=== PATIENT | male | born 1995 | race African-American/Black ===

== ENCOUNTER 2017-11-04 14:15 | Emergency (ER) | payer OTHER ==
[~2017-11-04] VITALS: Ht 172.7 cm; Wt 61.2 kg
--- NOTE | ~2017-11-04 | EKG ---
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
[~2017-11-04 14:15] MED LIST: 12 HOUR COLD R120 M1 PO; ANAPROX DS550 MG PO; NOHOMEMEDICATIONS; TESSALON200 MG PO; ZPAK PO
[2017-11-04 14:59] LABS: HEMATOCRIT 40.7 % (42.0-52.0); HEMOGLOBIN 14.3 gm/dL (14.0-18.0); MCH 30.3 pg (26.0-34.0); MCHC 35.1 g/dL (28.0-37.0); MCV 86.4 fL (80.0-100.0); PLATELET COUNT 204 thou/uL (150-400); RBC 4.72 mil/uL (4.50-6.00); RDW 12.4 % (10.5-14.5); WBC 15.7 thou/uL (4.0-11.0)
[2017-11-04 15:27] LABS: ALBUMIN 4.6 g/dL (3.4-5.0); ANION GAP 11 mmol/L (7-16); BUN 13 mg/dL (7-18); CALCIUM 9.8 mg/dL (8.5-10.1); CHLORIDE 105 mmol/L (98-107); CO2 26 mmol/L (21-32); CREATININE 0.9 mg/dL (0.7-1.3); GLUCOSE 109 mg/dL (74-106); LIPASE 64 U/L (73-393); POTASSIUM 4.3 mmol/L (3.5-5.1); SGOT 23 U/L (15-37); SGPT 37 U/L (30-65); SODIUM 142 mmol/L (136-145); TOTAL BILIRUBIN 0.6 mg/dL (<0.1-1.0); TOTAL PROTEIN 7.3 g/dL (6.4-8.2); TROPONIN-I < 0.04 ng/mL (<0.06)
[2017-11-04 15:42] LABS: ABSOLUTE NEUTROPHILS 13.7 thou/uL (1.4-8.2); PLATELET ESTIMATE NORMAL
[2017-11-04] MEDS ORDERED: PEPCID20 MG PO (15:54)
[2017-11-04] MEDS ORDERED: ANUSOL-HC25 MG RECTAL (15:54)
[2017-11-04] MEDS ORDERED: ZOFRAN ODT4 MG PO (15:54)
[2017-11-04] MEDS ORDERED: MIRALAX17 GM PO (15:54)
== END 2017-11-04 17:01 | disposition home or self-care (01) ==
LOC: ER 14:15
PROVIDERS: Physician Assistant
DX: K59.00 Constipation, unspecified (principal); R00.2 Palpitations; R01.1 Cardiac murmur, unspecified; Z88.0 Allergy status to penicillin

== ENCOUNTER 2017-12-11 09:43 | Emergency (ER) | payer OTHER ==
[~2017-12-11] VITALS: Ht 170.2 cm; Wt 59.0 kg
--- NOTE | ~2017-12-11 | EKG ---
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 TRIANA : 1995 Requested By: Honorio Macias Order Number: [id number] MD: Jose Huston Measurements Intervals [place] Rate: 80 P: 72 MT: 158 QRS: 82 QRSD: 80 T: 52 QT: 409 QTc: 472 Interpretive Statements Sinus arrhythmia Borderline prolonged QT interval Compared to ECG 11/04/2017 15:27:52 No significant change was found Electronically Signed On 12-12-2017 7:36:49 LUMBER PRESS OPERATOR by Jose Huston [email or web address] <ELECTRONICALLY SIGNED> By: Jose Huston MD, [facility] 12/12/17 0736 1053 1053 Jose Huston MD, FACC /EPI
[~2017-12-11 09:43] MED LIST changes: +ANUSOL-HC25 MG RECTAL; +MIRALAX17 GM PO; +PEPCID20 MG PO; +ZOFRAN ODT4 MG PO
[2017-12-11 10:13] LABS: URINE BILIRUBIN NEGATIVE (Negative); URINE BLOOD NEGATIVE (Negative); URINE CLARITY CLOUDY; URINE COLOR YELLOW; URINE GLUCOSE-RANDOM* NEGATIVE (Negative); URINE KETONES NEGATIVE (Negative); URINE LEUKOCYTES NEGATIVE (Negative); URINE NITRITE NEGATIVE (Negative); URINE PROTEIN (DIPSTICK) NEGATIVE (Negative); URINE UROBILINOGEN 0.2 E.U./dl (0.2-1.0)
[2017-12-11 10:22] LABS: ABSOLUTE NEUTROPHILS 9.6 thou/uL (1.4-8.2); BASOPHILS 0.8 % (0.0-2.0); EOSINOPHILS 0.7 % (0.0-3.0); HEMATOCRIT 42.5 % (42.0-52.0); HEMOGLOBIN 15.1 gm/dL (14.0-18.0); LYMPHOCYTES 16.2 % (24.0-44.0); MCH 30.3 pg (26.0-34.0); MCHC 35.4 g/dL (28.0-37.0); MCV 85.6 fL (80.0-100.0); MONOCYTES 4.9 % (1.0-8.0); PLATELET COUNT 278 thou/uL (150-400); POLYS 77.4 % (36.0-66.0); RBC 4.97 mil/uL (4.50-6.00); RDW 12.3 % (10.5-14.5); WBC 12.4 thou/uL (4.0-11.0)
[2017-12-11 10:28] LABS: AMP/METHAMP Negative (Negative); BARBITURATES Negative (Negative); BENZODIAZEPINES Negative (Negative); COCAINE Negative (Negative); METHADONE Negative (Negative); OPIATES Negative (Negative); PCP Negative (Negative)
[2017-12-11 10:30] LABS: CALCIUM 9.7 mg/dL (8.5-10.1); POTASSIUM 3.6 mmol/L (3.5-5.1)
[2017-12-11 10:37] LABS: ALBUMIN 4.5 g/dL (3.4-5.0); DIRECT BILIRUBIN 0.2 mg/dL (<0.1-0.3); TOTAL BILIRUBIN 0.6 mg/dL (<0.1-1.0); TOTAL PROTEIN 7.7 g/dL (6.4-8.2)
[2017-12-11] MEDS ORDERED: OMEPRAZOLE40 MG PO (11:25)
[2017-12-11] MEDS ORDERED: CARAFATE 1 GM TA1 G1 PO (11:25)
[2017-12-11] MEDS ORDERED: PHENERGAN 25 MG25 M1 PO (11:32)
[2017-12-12] MEDS ORDERED: PROMS25 WY RECTAL (10:55)
[2017-12-12] MEDS ORDERED: PHENERGAN 25 MG25 M1 PO (10:55)
== END 2017-12-11 12:35 | disposition home or self-care (01) ==
LOC: ER 09:43
PROVIDERS: Nurse Practitioner
DX: K52.9 Noninfective gastroenteritis and colitis, unspecified (principal); Z88.0 Allergy status to penicillin

== ENCOUNTER 2017-12-12 10:43 | Emergency (ER) | payer OTHER ==
[~2017-12-12] VITALS: Ht 170.2 cm; Wt 59.0 kg
[~2017-12-12 10:43] MED LIST changes: +CARAFATE 1 GM TA1 G1 PO; +OMEPRAZOLE40 MG PO; +PHENERGAN 25 MG25 M1 PO
[2017-12-12] MEDS ORDERED: PHENERGAN 25 MG25 M1 PO (10:55)
[2017-12-12] MEDS ORDERED: PROMS25 WY RECTAL (10:55)
[2017-12-12 11:10] LABS: ABSOLUTE NEUTROPHILS 9.3 thou/uL (1.4-8.2); BASOPHILS 0.8 % (0.0-2.0); EOSINOPHILS 0.4 % (0.0-3.0); HEMATOCRIT 40.7 % (42.0-52.0); HEMOGLOBIN 14.7 gm/dL (14.0-18.0); LYMPHOCYTES 15.4 % (24.0-44.0); MCH 30.1 pg (26.0-34.0); MCHC 36.1 g/dL (28.0-37.0); MCV 83.4 fL (80.0-100.0); MONOCYTES 7.1 % (1.0-8.0); PLATELET COUNT 289 thou/uL (150-400); POLYS 76.3 % (36.0-66.0); RBC 4.88 mil/uL (4.50-6.00); RDW 12.2 % (10.5-14.5); WBC 12.2 thou/uL (4.0-11.0)
[2017-12-12 11:23] LABS: CREATININE 1.1 mg/dL (0.7-1.3); POTASSIUM 3.2 mmol/L (3.5-5.1)
[2017-12-12 11:29] LABS: ALBUMIN 4.6 g/dL (3.4-5.0); DIRECT BILIRUBIN 0.2 mg/dL (<0.1-0.3); TOTAL BILIRUBIN 0.6 mg/dL (<0.1-1.0); TOTAL PROTEIN 7.6 g/dL (6.4-8.2)
== END 2017-12-12 12:06 | disposition home or self-care (01) ==
LOC: ER 10:43
PROVIDERS: Emergency Medicine
DX: K31.89 Other diseases of stomach and duodenum (principal); R11.2 Nausea with vomiting, unspecified; Z87.891 Personal history of nicotine dependence; Z88.0 Allergy status to penicillin

== ENCOUNTER 2019-06-25 22:37 | Inpatient (IN) | payer OTHER ==
[~2019-06-25] VITALS: Ht 167.6 cm; Wt 58.1 kg
[~2019-06-25 22:37] MED LIST changes: +PROMS25 WY RECTAL
[2019-06-25 22:38] VITALS: BP 119/74
[2019-06-25 23:40] LABS: ABSOLUTE NEUTROPHILS 15.2 thou/uL (1.4-8.2); BASOPHILS 1.1 % (0.0-2.0); EOSINOPHILS 0.1 % (0.0-3.0); HEMATOCRIT 42.1 % (42.0-52.0); LYMPHOCYTES 7.5 % (24.0-44.0); MCH 30.8 pg (26.0-34.0); MCHC 35.6 g/dL (28.0-37.0); MCV 86.4 fL (80.0-100.0); MONOCYTES 5.1 % (1.0-8.0); PLATELET COUNT 242 thou/uL (150-400); POLYS 86.2 % (36.0-66.0); RBC 4.87 mil/uL (4.50-6.00); RDW 12.7 % (10.5-14.5); WBC 17.7 thou/uL (4.0-11.0)
[2019-06-25 23:42] LABS: CALCIUM 9.9 mg/dL (8.5-10.1); CREATININE 1.2 mg/dL (0.7-1.3); POTASSIUM 3.7 mmol/L (3.5-5.1)
[2019-06-25 23:48] LABS: ALBUMIN 4.9 g/dL (3.4-5.0); TOTAL BILIRUBIN 0.7 mg/dL (<0.1-1.0)
[2019-06-26 00:24] LABS: URINE BILIRUBIN NEGATIVE (Negative); URINE BLOOD NEGATIVE (Negative); URINE CLARITY SL CLOUDY; URINE COLOR YELLOW; URINE GLUCOSE-RANDOM* NEGATIVE (Negative); URINE KETONES 2+ (Negative); URINE LEUKOCYTES-REFLEX NEGATIVE (Negative); URINE NITRITE-REFLEX NEGATIVE (Negative); URINE PROTEIN (DIPSTICK) 2+ (Negative); URINE SPECIFIC GRAVITY 1.025 (1.005-1.035); URINE UROBILINOGEN 0.2 E.U./dl (0.2-1.0)
[2019-06-26 00:35] LABS: BACTERIA-REFLEX 1-9 Few /HPF (None Seen); CASTS None Seen /LPF (None Seen); CRYSTALS None Seen /LPF (None Seen); MUCUS >6 Heavy strn/LPF (None Seen); SQUAMOUS 0-3 Few /LPF (0-3); URINE RBC 0-2 Rare /HPF (0-2); URINE WBC-REFLEX 0-5 Rare /HPF (0-5)
--- NOTE | 2019-06-26 01:33 | NUR ---
LACTIC ACID RESULT 4.3. DR. HAWKINS INFORMED
[2019-06-26 03:07] VITALS: BP 90/39
[2019-06-26 03:20] VITALS: BP 105/66
--- NOTE | 2019-06-26 05:00 | NUR ---
PT ARRIVED ON THE UNIT @0315 FROM THE ED WITH C/O N/V AND PAIN BELOW BELLY BUTTON AREA. ASSESSMENT DONE PT A&OX4, UP AD SOLOMON TO THE BATHROOM. NO NAUSEA NOTED DURING ASSESSMENT. CLEAR LUNG SOUNDS AND IV INTACT IN RT AC WITH NS INFUSING AT 125ML/HR. CONSENT SIGNED AND ADMISSION DOCUMENT. PT STATED WILL NEED TRANSPORTATION HOME AFTER D/C AND SO HAS A 3WEEKS OLD BABY AT HOME. PT STATED HAS BE EATING POORLY WITHIN THE LAST 3MONTHS AND HAS LOST 15LBS. PT ORIENTED TO ROOM AND CALL LIGHT WITHIN REACH WILL CONTINUE POC TILL EOS.
[2019-06-26 06:22] LABS: AMP/METHAMP Negative (Negative); BARBITURATES Negative (Negative); BENZODIAZEPINES Negative (Negative); COCAINE Negative (Negative); METHADONE Negative (Negative); OPIATES Negative (Negative); PCP Negative (Negative)
[2019-06-26 07:42] VITALS: BP 107/57
[2019-06-26 13:16] VITALS: BP 107/57
--- NOTE | 2019-06-26 15:02 | NUR ---
ASSUMED CARE OF PATIENT AT 0715, PATIENT ALERT AND ORIENTED X 4. PATIENT UP AD SOLOMON. PATIENT DENIES PAIN AND N/V, NO DIARRHEA AT THIS TIME. PATIENT ON CLEAR LIQUIDS, TOLERATED W/O DIFFICULTY. PATIENT HAS RIGHT AC IV IN PLACE WITH NS AT 125CC/HR. PATIENT WANTS TO BE DISCHARGED TO HOME FEELS BETTER. RIGHT AC IV REMOVED PRIOR TO DISCHARGE. ALL DISCHARGE PAPERWORK AND ALL PERSONAL BELONGINGS SENT WITH THE PATIENT. CAB VOUCHER GIVEN FOR TRANSPORT TO HOME. VOLUNTEER TOOK PATIENT TO SEC[facility], THEY WILL CALL FOR CAB.
--- NOTE | 2019-06-26 15:07 | NUR ---
PT ADMITTED RELATED TO N/V, DIARRHEA. CM REVIEWED CHART AND SPOKE WITH CARE TEAM. CM MET WITH PT AT BEDSIDE THIS DAY. PT IS A&O X4. CM ROLE INTRODCUED. PT INDICATED HE LIVES IN A HOUSE WITH HIS SPOUSE AND 2 CHILDREN. HE INIDCATED THAT THERE ARE 7 STEPS TO ENTER AND NO STEPS INSIDE. 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 PT INDICATED NO DME OR HH HX. PT INDICATED HE IS IN FACT PATIENT PAY AND IS WITHOUT AT PCP IN [place]. PT WAS PROVIDED A [facility]. PT INDICATED HE NEEDED A RIDE HOME. CARE TEAM INDICATED THAT PT IS MEDICALLY STABLE TO DC HOME THIS DAY. CM COMPLETED YELLOW CAB VOUCHER AND IT WAS PROVIDED TO NURSE FOR HER TO SEND PT DOWN TO [facility] WITH TO ARRANGE. NO OTHER CM INTERVENTION INDICATED. CASE CLOSED.
== END 2019-06-26 13:30 | disposition home or self-care (01) | DRG 392 ==
LOC: ER 22:37 → 4E 06-26 02:39 → EROBS 06-26 02:39 → 4E 06-26 03:07 → ENTRNSPT 06-26 13:24 → 4E 06-26 13:30 → EDTRNSPTSTS 06-26 13:32
PROVIDERS: Emergency Medicine; Nurse Practitioner Acute Care; ADMIT Hospitalist
DX: K31.89 Other diseases of stomach and duodenum (principal); E87.2 Acidosis; R11.2 Nausea with vomiting, unspecified; D72.829 Elevated white blood cell count, unspecified; G89.29 Other chronic pain; K21.9 Gastro-esophageal reflux disease without esophagitis; F17.210 Nicotine dependence, cigarettes, uncomplicated; Z88.0 Allergy status to penicillin
CPT/HCPCS: 10084

== ENCOUNTER 2021-06-18 17:07 | Emergency (ER) | payer OTHER ==
[~2021-06-18] VITALS: Ht 172.7 cm; Wt 52.2 kg
--- NOTE | ~2021-06-18 | EMS ---
[facility] [address] [place] [address] EMS Patient Care Report Name: KARENA KOWALSKI Room #: DEP GABY Williamson#: [id number] Admission: 06/18/21 Attend Phys: Discharge: 06/18/21 Date of : [birth year] Report #: [id number] THIS REPORT FOR: //name// Report Transmitted: 06/23/2021 11:05 EMS Care Summary [place], [place]/[facility] Incident [id number] @ 06/18/2021 16:29 Incident Location [address] [place] [address] [address] [place] [address] Patient KARENA KOWALSKI Male, 25 Years 1995 Patient Address [address] [place] [address] Patient History None Reported, Patient Allergies No known allergies, Patient Medications None Reported, Chief Complaint body cramps Disposition Transported No Lights/Hart Dispatch Reason Sick Person Transported To [facility] Narrative patient is found walking around at the scene. patient states that for about the last five days he has had nausea and vomiting. patient also says that he just [facility] [address] [place] [address] EMS Patient Care Report Name: KARENA KOWALSKI Room #: DEP ER Janie.#: [id number] Admission: 06/18/21 Attend Phys: Discharge: 06/18/21 Date of : [birth year] Report #: [id number] does not feel well in general. patient says that today he is starting to have all over body cramping. patient states that he was at the hospital earlier today but says that the er did nothing for him and that is why he wants transport to a different hospital. patient states that he did test negative on his covid test. patient has no other complaints of illness or injury. Initial Vitals @16:40P: 113,R: 14,BP: 121/82,Pain: 2/10,GCS: 15,Glucose: 169,SpO2: 99,Revised Trauma: 12, Assessments @16:38MENTAL:No Abnormalities,SKIN:No Abnormalities,HEENT:Head/Face: No Abnormalities,Eyes: No Abnormalities,Neck/Airway: No Abnormalities,LUNG SOUNDS:General: No Abnormalities,Left Upper: No Abnormalities,Right Upper: No Abnormalities,Left Lower: No Abnormalities,Right Lower: No Abnormalities,ABDOMEN:General: No Abnormalities,Left Upper: No Abnormalities,Right Upper: No Abnormalities,Left Lower: No Abnormalities,Right Lower: No Abnormalities,PELVIS//GI:No Abnormalities,EXTREMITIES:Left Arm: No Abnormalities,Right Arm: No Abnormalities,Left Leg: No Abnormalities,Right Leg: No Abnormalities,PULSE:NEURO:No Abnormalities, Impression Generalized Weakness Procedures @17:00Saline Lock 0cc (20 ga) Site: Antecubital-LeftResponse: UnchangedSucceeded@16:38ALS AssessmentResponse: UnchangedSucceeded@16:39StretcherResponse: Unchanged Timeline 16:28,Call Received 16:28,Dispatch Notified 16:29,Dispatched 16:31,En Route 16:35,On Scene 16:38,At Patient 16:38,ALS Assessment,Response: UnchangedSucceeded, 16:39,Stretcher,Response: Unchanged 16:40,BP: 121/82 M,PULSE: 113,RR: 14 R,SPO2: 99 Ox,ETCO2: ,B,PAIN: 2,GCS: 15, 16:45,Depart Scene 17:00,Saline Lock 0cc 20 ga Site: Antecubital-Left,Response: UnchangedSucceeded, 17:03,At Destination 17:26,Call Closed Disclaimer [facility] [address] [place] [address] EMS Patient Care Report Name: KARENA KOWALSKI Room #: DEP Teri#: [id number] Admission: 06/18/21 Attend Phys: Discharge: 06/18/21 Date of : [birth year] Report #: [id number] v1.1 Copyright 2020 [employer] This EMS Care Summary contains data elements from the applicable legal record (which may be displayed differently). It is designed to provide pertinent information for the following purposes: continuity of care, clinical quality, and state data reporting. The complete legal record is available to ED staff and administrators of the receiving hospital in [employer]'s Patient Tracker. All data is provided "as is."
[2021-06-18 17:32] LABS: ABSOLUTE NEUTROPHILS 11.3 thou/uL (1.4-8.2); BASOPHILS 0.7 % (0.0-2.0); HEMATOCRIT 52.2 % (42.0-52.0); HEMOGLOBIN 18.5 gm/dL (14.0-18.0); LYMPHOCYTES 15.9 % (24.0-44.0); MCHC 35.4 g/dL (28.0-37.0); MCV 87.5 fL (80.0-100.0); MONOCYTES 16.6 % (1.0-8.0); PLATELET COUNT 333 thou/uL (150-400); POLYS 66.8 % (36.0-66.0); RBC 5.96 mil/uL (4.50-6.00); RDW 12.4 % (10.5-14.5); WBC 16.9 thou/uL (4.0-11.0)
[2021-06-18 17:48] LABS: ALBUMIN 6.1 g/dL (3.4-5.0); CREATININE 2.7 mg/dL (0.7-1.3); DIRECT BILIRUBIN 0.2 mg/dL (<0.1-0.2); MAGNESIUM 3.3 mg/dL (1.8-2.4); POTASSIUM 3.9 mmol/L (3.5-5.1); TOTAL BILIRUBIN 0.6 mg/dL (0.2-1.0); TOTAL PROTEIN 11.1 g/dL (6.4-8.2)
[2021-06-18 17:51] LABS: CALCIUM 13.6 mg/dL (8.5-10.1)
[2021-06-18 18:58] LABS: URINE BILIRUBIN 1+ (Negative); URINE BLOOD 3+ (Negative); URINE CLARITY CLEAR; URINE COLOR YELLOW; URINE GLUCOSE-RANDOM* NEGATIVE (Negative); URINE KETONES 1+ (Negative); URINE LEUKOCYTES-REFLEX NEGATIVE (Negative); URINE NITRITE-REFLEX NEGATIVE (Negative); URINE PROTEIN (DIPSTICK) 3+ (Negative); URINE SPECIFIC GRAVITY >= 1.030 (1.005-1.035)
[2021-06-18 19:05] LABS: AMP/METHAMP Negative (Negative); BARBITURATES Negative (Negative); BENZODIAZEPINES Negative (Negative); COCAINE Negative (Negative); ICTOTEST (BILI CONFIRMATORY) Negative (Negative); METHADONE Negative (Negative); OPIATES Negative (Negative); PCP Negative (Negative)
[2021-06-18 19:08] LABS: BACTERIA-REFLEX 1-9 Few /HPF (None Seen); CRYSTALS None Seen /LPF (None Seen); SQUAMOUS >10 Many /LPF (0-3); URINE RBC >20 Many /HPF (NONE SEEN); URINE WBC-REFLEX 0-5 Rare /HPF (0-5)
[2021-06-18 19:09] LABS: CASTS None Seen /LPF (None Seen); TRANSITIONAL EPITHEL CELL 4-10 Moderate /LPF (None Seen)
[2021-06-18] MEDS ORDERED: REGLAN 5 MG TAB5 MG PO ×2 (20:37)
[2021-06-18 21:00] VITALS: BP 156/90
--- NOTE | 2021-06-19 07:09 | EKG ---
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 : 1995 Requested By: Angeles Wright Order Number: [id number] MD: Laron Diaz Measurements Intervals [place] Rate: 79 P: 77 NM: 153 QRS: 79 QRSD: 69 T: 55 QT: 345 QTc: 396 Interpretive Statements Sinus rhythm ST elevation suggests pericarditis Compared to ECG 12/11/2017 10:53:52 ST (T wave) deviation now present Sinus arrhythmia no longer present Electronically Signed On 06-19-2021 7:09:20 CDT by Laron Diaz [email or web address] <ELECTRONICALLY SIGNED> By: Laron Diaz MD, [facility] 06/19/21 0709 1854 53 Laron Diaz MD, FACC /EPI
== END 2021-06-18 21:03 | disposition home or self-care (01) ==
LOC: ER 17:07
PROVIDERS: Emergency Medicine
DX: N17.9 Acute kidney failure, unspecified (principal); Z20.822 Contact with and (suspected) exposure to COVID-19; E86.0 Dehydration; R11.10 Vomiting, unspecified; K21.9 Gastro-esophageal reflux disease without esophagitis; Z88.0 Allergy status to penicillin; Z87.891 Personal history of nicotine dependence; Z96.642 Presence of left artificial hip joint

== ENCOUNTER 2021-06-20 02:10 | Emergency (ER) | payer OTHER ==
[~2021-06-20] VITALS: Ht 172.7 cm; Wt 52.2 kg
[~2021-06-20 02:10] MED LIST changes: +REGLAN 5 MG TAB5 MG PO
[2021-06-20 04:19] LABS: ABSOLUTE NEUTROPHILS 7.9 thou/uL (1.4-8.2); BASOPHILS 0.4 % (0.0-2.0); EOSINOPHILS 0.2 % (0.0-3.0); HEMATOCRIT 42.4 % (42.0-52.0); LYMPHOCYTES 16.7 % (24.0-44.0); MCHC 35.8 g/dL (28.0-37.0); MCV 86.5 fL (80.0-100.0); MONOCYTES 13.3 % (1.0-8.0); PLATELET COUNT 294 thou/uL (150-400); POLYS 69.4 % (36.0-66.0); RDW 12.5 % (10.5-14.5); WBC 11.3 thou/uL (4.0-11.0)
[2021-06-20 04:21] LABS: HEMOGLOBIN 15.2 gm/dL (14.0-18.0)
[2021-06-20 04:41] LABS: ALBUMIN 4.6 g/dL (3.4-5.0); CALCIUM 9.3 mg/dL (8.5-10.1); CREATININE 1.3 mg/dL (0.7-1.3); POTASSIUM 3.9 mmol/L (3.5-5.1); TOTAL BILIRUBIN 0.6 mg/dL (0.2-1.0); TOTAL PROTEIN 8.7 g/dL (6.4-8.2)
[2021-06-20] MEDS ORDERED: PROTONIX40 MG PO ×2 (07:59)
[2021-06-20] MEDS ORDERED: HYDROXYZINE HCL25 M2 PO ×2 (07:59)
[2021-06-20] MEDS ORDERED: ONDANSETRON HCL4 M2 PO ×2 (07:59)
[2021-06-20] MEDS ORDERED: BENTYL 10 MG CA10 MG PO ×2 (07:59)
[2021-06-20 08:02] LABS: URINE BILIRUBIN NEGATIVE (Negative); URINE BLOOD TRACE (Negative); URINE CLARITY CLEAR; URINE COLOR YELLOW; URINE GLUCOSE-RANDOM* NEGATIVE (Negative); URINE KETONES NEGATIVE (Negative); URINE LEUKOCYTES-REFLEX NEGATIVE (Negative); URINE NITRITE-REFLEX NEGATIVE (Negative); URINE PROTEIN (DIPSTICK) NEGATIVE (Negative); URINE UROBILINOGEN 0.2 E.U./dl (0.2-1.0)
[2021-06-20 08:09] VITALS: BP 117/70
== END 2021-06-20 08:09 | disposition home or self-care (01) ==
LOC: ER 02:10
PROVIDERS: Emergency Medicine
DX: R10.13 Epigastric pain (principal); K21.9 Gastro-esophageal reflux disease without esophagitis; Z79.899 Other long term (current) drug therapy; Z88.0 Allergy status to penicillin; Z87.891 Personal history of nicotine dependence

== ENCOUNTER 2021-06-21 17:07 | Inpatient (IN) | payer OTHER ==
[~2021-06-21] VITALS: Ht 172.7 cm; Wt 54.7 kg
[~2021-06-21 17:07] MED LIST changes: +BENTYL 10 MG CA10 MG PO; +HYDROXYZINE HCL25 M2 PO; +ONDANSETRON HCL4 M2 PO; +PROTONIX40 MG PO
[2021-06-21 17:14] VITALS: BP 118/89
[2021-06-21 19:08] LABS: URINE BLOOD NEGATIVE (Negative); URINE CLARITY CLEAR; URINE COLOR YELLOW; URINE GLUCOSE-RANDOM* NEGATIVE (Negative); URINE KETONES TRACE (Negative); URINE LEUKOCYTES-REFLEX NEGATIVE (Negative); URINE NITRITE-REFLEX NEGATIVE (Negative); URINE PROTEIN (DIPSTICK) 2+ (Negative); URINE SPECIFIC GRAVITY 1.025 (1.005-1.035)
[2021-06-21 19:24] LABS: ICTOTEST (BILI CONFIRMATORY) Negative (Negative); URINE BILIRUBIN NEGATIVE (Negative)
[2021-06-21 19:34] LABS: SQUAMOUS 0-3 Few /LPF (0-3); URINE RBC 1-2 Rare /HPF (NONE SEEN); URINE WBC-REFLEX 0-5 Rare /HPF (0-5)
[2021-06-21 19:35] LABS: HYALINE CASTS 4-10 Moderate /LPF (None Seen)
[2021-06-21 19:36] LABS: MUCUS >6 Heavy strn/LPF (None Seen)
[2021-06-21 19:58] LABS: HEMATOCRIT 51.5 % (42.0-52.0); MCH 30.6 pg (26.0-34.0); MCHC 35.2 g/dL (28.0-37.0); RBC 5.93 mil/uL (4.50-6.00); RDW 12.7 % (10.5-14.5); WBC 11.8 thou/uL (4.0-11.0)
[2021-06-21 20:20] LABS: ALBUMIN 5.3 g/dL (3.4-5.0); CALCIUM 11.1 mg/dL (8.5-10.1); CREATININE 1.9 mg/dL (0.7-1.3); MAGNESIUM 2.9 mg/dL (1.8-2.4); POTASSIUM 3.9 mmol/L (3.5-5.1); TOTAL BILIRUBIN 0.8 mg/dL (0.2-1.0)
[2021-06-21 20:35] LABS: HEMOGLOBIN 18.1 gm/dL (14.0-18.0)
[2021-06-21 20:37] LABS: TOTAL PROTEIN 10.4 g/dL (6.4-8.2)
[2021-06-21 22:36] VITALS: BP 118/89
[2021-06-21 22:59] VITALS: BP 120/82
[2021-06-21 23:40] VITALS: BP 106/76
--- NOTE | 2021-06-22 04:26 | NUR ---
Pt admitted from ED with MONET/Rhambdo. A/OX4,VSS. Up ad kim,fall safety reinforced and pt agrees to call for help as needed.C/o cramping to abd,arms,legs and back intermittently,medicated per EMAR with relief reported. Request for sleep aid at this time,informed it's too late for sleep medication,will be ordered for tonight. SR on telemetry,resting quietly w/o any distress,will continue to monitor pt.
[2021-06-22 07:02] LABS: CALCIUM 8.7 mg/dL (8.5-10.1); CREATININE 1.6 mg/dL (0.7-1.3); POTASSIUM 3.6 mmol/L (3.5-5.1)
[2021-06-22 07:30] VITALS: BP 112/75
--- NOTE | 2021-06-22 07:31 | EKG ---
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 : 1995 Requested By: Pankaj Chahal Order Number: [id number] MD: Laron Diaz Measurements Intervals [place] Rate: 81 P: -75 HI: 135 QRS: 89 QRSD: 82 T: 51 QT: 344 QTc: 400 Interpretive Statements Sinus or ectopic atrial rhythm Probable left atrial enlargement ST elevation suggests acute pericarditis Compared to ECG 06/18/2021 18:54:24 Ectopic atrial rhythm now present Sinus rhythm no longer present ST (T wave) deviation still present Electronically Signed On 06-22-2021 7:30:53 CDT by Laron Diaz [email or web address] <ELECTRONICALLY SIGNED> By: Laron Diaz MD, [facility] 06/22/21 0730 1950 1950 Laron Diaz MD, [facility] /EPI
[2021-06-22 10:17] LABS: AMP/METHAMP Negative (Negative); BARBITURATES Negative (Negative); BENZODIAZEPINES Negative (Negative); COCAINE Negative (Negative); METHADONE Negative (Negative); OPIATES POSITIVE (Negative); PCP Negative (Negative)
--- NOTE | 2021-06-22 12:02 | NUR ---
PT ADMITTED RELATED TO MONET AND RHAMBDO. CM REVIEWED CHART AND SPOKE WITH CARE TEAM. CM MET WITH PT AT BEDSIDE THIS DAY. PT APPEARED TO BE A&O X4. CM ROLE INTRODUCED. PT INDICATED HE RESIDES IN AN APARTMENT WITH HIS SPOUSE AND THREE CHILDREN WITH 14 STEPS TO ENTER AND NO STEPS INSIDE. PT INDICATED THATHE HAD NEEDED ASSISTANCE IN AND OUT OT THE TUB MASS SPEC. PT INDICATED HE HADN'T BEEN USING ANY DME TO ASSIST WITH AMBULATION MASS SPEC. PT INDICATED NO PCP CURRENTLY. PT MAY DC HOME THIS AFTERNOON IF HE IS ABLE TO TOLERATE LUNCH OTHERWISE MAY HAVE EGD HERE TOMORROW. CM FOLLOWING REGARDING DC PLANNING.
[2021-06-22] MEDS ORDERED: PROTONIX40 M2 PO ×2 (13:51)
[2021-06-22] MEDS ORDERED: REGLAN 5 MG TAB5 MG PO ×2 (13:51)
[2021-06-22] MEDS ORDERED: ONDANSETRON HCL4 M2 PO ×2 (13:51)
[2021-06-22 14:01] VITALS: BP 112/75
--- NOTE | 2021-06-22 14:18 | NUR ---
Assumed pt care at 7am.Pt in bed resting at the beginning of shift.Assessment completed.vss.Pt reported lack of sleep for over 2weeks.Rn encouraged pt to discuss this with Dr when rounding today.Gi rounded on pt and discussed plan to have gi procedure this admission or as out pt.He said he will think about it and get back with Gi construction consultant.Around 1300,pt called out and wanted iv and classroom monitor dc so he can dc home.Rn informed pt that he should wait for doctor to be notify so he can de dc rather AMA.Dr Alegria notified .Pt left at [address] completed dc summary at 1400.Few minutes later ,pt called and wanted pt readmitted.
[2021-06-23] MEDS ORDERED: OMEPRAZOLE40 MG PO (12:18)
[2021-06-23] MEDS ORDERED: NYSTATIN100000 UNI SW&SWALLOW (12:18)
[2021-06-23] MEDS ORDERED: ZOFRAN ODT4 MG PO (12:51)
== END 2021-06-22 13:39 | disposition left against medical advice (07) | DRG 683 ==
LOC: ER 17:07 → 4W 21:27 → EROBS 21:27 → 4W 23:00
PROVIDERS: Emergency Medicine; Nurse Practitioner Family; ADMIT Internal Medicine; ATTEND Internal Medicine
DX: N17.9 Acute kidney failure, unspecified (principal); M62.82 Rhabdomyolysis; K21.9 Gastro-esophageal reflux disease without esophagitis; E86.0 Dehydration; R11.15 Cyclical vomiting syndrome unrelated to migraine; Z53.21 Procedure and treatment not carried out due to patient leaving prior to being seen by health care provider; F12.90 Cannabis use, unspecified, uncomplicated; Z88.0 Allergy status to penicillin; Z79.899 Other long term (current) drug therapy
CPT/HCPCS: 10045

== ENCOUNTER 2021-06-23 08:34 | Emergency (ER) | payer OTHER ==
[~2021-06-23] VITALS: Ht 172.7 cm; Wt 52.2 kg
[~2021-06-23 08:34] MED LIST changes: +PROTONIX40 M2 PO
[2021-06-23 09:33] LABS: ABSOLUTE NEUTROPHILS 7.4 thou/uL (1.4-8.2); BASOPHILS 0.8 % (0.0-2.0); EOSINOPHILS 2.3 % (0.0-3.0); HEMATOCRIT 38.8 % (42.0-52.0); HEMOGLOBIN 13.8 gm/dL (14.0-18.0); MCH 30.9 pg (26.0-34.0); MCHC 35.5 g/dL (28.0-37.0); MCV 86.8 fL (80.0-100.0); PLATELET COUNT 348 thou/uL (150-400); POLYS 65.9 % (36.0-66.0); RBC 4.47 mil/uL (4.50-6.00); RDW 12.3 % (10.5-14.5); WBC 11.2 thou/uL (4.0-11.0)
[2021-06-23 09:34] LABS: CALCIUM 8.9 mg/dL (8.5-10.1); CREATININE 1.2 mg/dL (0.7-1.3)
[2021-06-23 09:41] LABS: ALBUMIN 3.9 g/dL (3.4-5.0); TOTAL BILIRUBIN 0.5 mg/dL (0.2-1.0); TOTAL PROTEIN 7.4 g/dL (6.4-8.2)
[2021-06-23] MEDS ORDERED: OMEPRAZOLE40 MG PO (12:18)
[2021-06-23] MEDS ORDERED: NYSTATIN100000 UNI SW&SWALLOW (12:18)
[2021-06-23] MEDS ORDERED: ZOFRAN ODT4 MG PO (12:51)
[2021-06-23 12:52] VITALS: BP 125/93
== END 2021-06-23 12:53 | disposition home or self-care (01) ==
LOC: ER 08:34
PROVIDERS: Emergency Medicine
DX: B37.81 Candidal esophagitis (principal); Z20.822 Contact with and (suspected) exposure to COVID-19; R10.84 Generalized abdominal pain; R11.2 Nausea with vomiting, unspecified; K21.9 Gastro-esophageal reflux disease without esophagitis; Z87.891 Personal history of nicotine dependence; Z88.0 Allergy status to penicillin
CPT/HCPCS: 62110; 62900